=== PATIENT | male | born 1985 | race Two or more races ===

== ENCOUNTER 2018-10-03 08:32 | Emergency (ER) | payer SELFPAY ==
[~2018-10-03] VITALS: Ht 175.3 cm; Wt 70.3 kg
[2018-10-03 09:20] VITALS: BP 139/90
[2018-10-03] MEDS ORDERED: IBUPROFEN 600 MG TAB PO ONE (09:45)
[2018-10-03] MEDS ORDERED: IBUPROFEN 800 MG TAB PO ONE (09:45)
== END 2018-10-03 09:57 | disposition home or self-care (01) ==
LOC: ER 08:32
DX: H66.92 Otitis media, unspecified, left ear (principal); F17.210 Nicotine dependence, cigarettes, uncomplicated

== ENCOUNTER 2024-03-06 00:36 | Emergency (ER) | payer SELFPAY ==
[~2024-03-06] VITALS: Ht 165.1 cm; Wt 68.0 kg
[2024-03-06] MEDS: KETOROLAC TROMETH 30 MG/ML 1ML VIAL IV ONE (01:28)
[2024-03-06] MEDS: LIDOCAINE W/ EPINEPHRINE 2% INJ 20ML VIAL IJ ONE (01:30)
[2024-03-06 01:45] VITALS: BP 134/89; PULSE 68; RESP 12; TEMP 97.8; O2SAT 98
[2024-03-06] MEDS: ceFAZolin IM 1GM/2.5ML STERILE WATER IM ONE (02:40)
[2024-03-06] MEDS: TETANUS-DIPTH-ACEL PERTUSSIS 0.5ML SYR Tdap IM ONE (02:44)
[2024-03-06] MEDS ORDERED: AUG875T PO (03:33)
[2024-03-06] MEDS ORDERED: IBU600T PO (03:33)
== END 2024-03-06 04:13 | disposition home or self-care (01) ==
LOC: EDBD 00:36 → ER 00:36
DX: S41.112A Laceration without foreign body of left upper arm, initial encounter (principal); F17.210 Nicotine dependence, cigarettes, uncomplicated; F12.90 Cannabis use, unspecified, uncomplicated; Z59.00 Homelessness unspecified; W54.0XXA Bitten by dog, initial encounter; Y93.89 Activity, other specified; Y92.524 Gas station as the place of occurrence of the external cause; Y99.8 Other external cause status
CPT/HCPCS: 13121; 13122; 90471; 90715; 96374; 99152; 99285; J0690; J1885; J7030